=== PATIENT | female | born 1975 | race Caucasian/White ===

== ENCOUNTER 2016-04-24 20:35 | Observation (INO) | payer BC ==
--- NOTE | ~2016-04-24 | HP ---
History And Physical [place] [id number] [facility] [place]. [address] NAME: SIMON SHERIDAN : 73 STATUS : ADM Renea PAT#: [id number] AGE: 40 ADM/REG DATE : 04/24/16 MR#: [id number] REPORT SERV DATE: 04/25/16 DICTATED BY: MEL PRITCHARD DATE: 04/25/16 REPORT STATUS : Draft TRANSCRIBED BY: MODNils DATE: 04/25/16 DATE OF ADMISSION: 04/24/2016 CHIEF COMPLAINT: Chest pain. HISTORY OF PRESENT ILLNESS: This is a 40-year-old female with type 2 diabetes mellitus, who reports a two-week history of chest pain. She states the pain has been constant, described as "tightness," and does not have an exertional component. She states "I just haven't been feeling right," and coworkers have noticed her face flushing over the last couple of weeks, and the patient also mentions some chills recently. Yesterday while she was cleaning some cabinets, the chest pain worsened to 8/10 in severity in the mid sternum with some radiation to the right side of her chest as well as the right side of her back and up to her jaw and is accompanied with feeling of "couldn't get my breath." She took two aspirin and then 30 minutes later, had a "burning sensation" down the right arm and she thought it ta to come to the emergency department for further evaluation. She was given a GI cocktail as well as a fluid bolus with no specific relief, and then she states that the sublingual nitroglycerin as well as paste seemed to ease the chest pain. Nothing has ever fully relieved the pain. The patient denies personal history for DC, CVA, PE, or DVT. She states she has been under a lot of stress lately at work as well as with some family situation and moving. She states these recent chills and sweats, but states she has not checked her temperature for fever. Denies cough or any other significant illness recently. Her blood glucose is elevated at 333 on her admission blood work, and she does stay compliant with her metformin, but not as well with her dietary restrictions. Reportedly, her last hemoglobin A1c a couple of months ago was 9, and there have been no recent adjustments to her diabetes regimen. The patient denies any recent orthopnea, PND, or lower extremity edema. PAST MEDICAL HISTORY: 1. Anxiety and depression. 2. GERD. 3. Hypothyroidism. 4. Type 2 diabetes mellitus. 5. Obesity. 6. Crohn's disease, under good control. Has seen Dr. Richards in the past. 7. Renal calculi, 11/2015 with cystoscopy and stent. PAST SURGICAL HISTORY: 1. Right ganglionic cyst removal. 2. Hysterectomy with BSO. 3. . 4. Cholecystectomy. HOME MEDICATIONS: Celexa 40 daily, Prevacid 15 daily, Synthroid 25 mcg daily, Glucophage 500 b.i.d. ALLERGIES: NO KNOWN DRUG ALLERGIES. History And Physical [address] [address] NAME: SIMON SHERIDAN : 73 STATUS : ADM Renea PAT#: [id number] AGE: 40 ADM/REG DATE : 04/24/16 MR#: [id number] REPORT SERV DATE: 04/25/16 DICTATED BY: MEL PRITCHARD DATE: 04/25/16 REPORT STATUS : Draft TRANSCRIBED BY: DIETER DATE: 04/25/16 SOCIAL HISTORY: The patient is single and lives with her boyfriend. She works as a CPA. She lives in [place]. One daughter, who is 17 years old. Denies history of smoking. She has an occasional glass of wine. Denies illicit drug use. FAMILY HISTORY: Father with coronary artery disease, but alive at age 69. No premature cardiovascular among her first-degree relatives. REVIEW OF SYSTEMS: Negative, except as indicated above. PHYSICAL EXAMINATION: VITAL SIGNS: Blood pressure 106/56, heart rate 62, temperature 97.8, pulse oximetry 95% on room air. BMI 34.6. GENERAL: Well developed, well nourished, in no acute distress. HEENT: Anicteric. Normal EOM. Head, normocephalic. PERRLA, no xanthelasma. NECK: Supple. No JVD. Carotids normal without bruits. LUNGS: Clear to auscultation bilaterally anterior and posterior. Respirations even and unlabored. CARDIOVASCULAR: S1 and S2. Regular rate and rhythm. No murmurs, rubs, or gallops appreciated. PMI nondisplaced. There is some tenderness to palpation over the right sternum. ABDOMEN: Normal bowel sounds. Soft and nontender to palpation. No masses or organomegaly. EXTREMITIES: No peripheral edema. DP/PT and radial pulses palpable bilaterally. No clubbing or cyanosis. SKIN: Warm and dry. Normal turgor. No pallor or cyanosis. MUSCULOSKELETAL: Moving all extremities x4. Normal muscle strength. NEURO/PSYCH: Alert and oriented with appropriate affect. LABORATORY DATA: White blood count 12.5, hemoglobin 14.1, hematocrit 40.3. D-dimer less than 0.27. Sodium 138, potassium 3.8, BUN 13, creatinine 0.8, glucose 333. Troponin less than 0.02 x2. Normal liver enzymes and lipase. Chest x-ray shows no acute cardiopulmonary processes. EKGs interpreted by myself indicate normal sinus rhythm with poor R-wave progression through the anteroseptal leads and possible inferior Q-waves. No ischemic changes. ASSESSMENT AND PLAN: 1. Midsternal chest pain in this 40-year-old female with cardiovascular risk factors of uncontrolled diabetes. She has been observed overnight in the chest pain observation unit and is negative for acute coronary syndrome. Recommend proceeding with a stress echocardiogram in the morning to further differentiate any cardiac etiology. If this is low risk, we will plan to discharge her home to follow up with her primary care physician. Her white blood count is mildly elevated, but the patient shows no signs of acute illness at this time. She has been afebrile. I wonder if some of her symptoms may be viral or musculoskeletal. 2. Uncontrolled diabetes mellitus. We have instituted a level 1 sliding scale insulin protocol while holding metformin while she is here. I will check a hemoglobin A1c and History And Physical [address] [address] NAME: SIMON SHERIDAN : 73 STATUS : ADM Renea PAT#: [id number] AGE: 40 ADM/REG DATE : 04/24/16 MR#: [id number] REPORT SERV DATE: 04/25/16 DICTATED BY: MEL PRITCHARD DATE: 04/25/16 REPORT STATUS : Draft TRANSCRIBED BY: DIETER DATE: 04/25/16 also ask the lithographic proofer to discuss with the patient dietary management of her diabetes. The patient will need followup with her primary care physician for intensification of her diabetes medications. 3. Hypothyroidism. The patient stays compliant with her Synthroid. We will check a TSH. 4. Gastroesophageal reflux disease and history of Crohn's. The patient states no recent diarrhea or bloody stools. No recent nausea or vomiting. We will continue PPI. 5. The patient does report history of hypertriglyceridemia. I have spoken with the patient about increasing exercise, losing weight and low-fat, low-cholesterol diet. This will likely also respond to her increased diabetes management. DBT/MODL Mel Pritchard NP / [phone] CC: Fariba Whitley, MSN, [employer]- Lopez Woods M.D.
[2016-04-24 19:24] LABS: BASOPHILS 0.2 %; BASOPHILS ABSOLUTE 0.03 10/3/uL (0.0-0.16); EOSINOPHILS 1.1 %; EOSINOPHILS ABSOLUTE 0.14 10/3/uL (0.0-0.53); ER CBC TAT 0 Hrs 09 Mins; HEMATOCRIT 40.3 % (36.0-48.0); HEMOGLOBIN 14.1 g/dL (12.0-16.0); IMMATURE GRANULOCYTES 0.2 %; IMMATURE GRANULOCYTES ABSOLUTE 0.02 10/3/uL (0.0-0.11); LYMPHOCYTES 34.9 %; LYMPHOCYTES ABSOLUTE 4.36 10/3/uL (0.67-4.30); MANUAL DIFF NO %; MEAN CORPUSCULAR HEMOGLOB 27.2 pg (26.0-34.0); MEAN CORPUSCULAR VOLUME 77.6 fL (80-100); MEAN PLATELET VOLUME 10.7 fL (9.2-13.0); MONOCYTES 4.1 %; MONOCYTES ABSOLUTE 0.51 10/3/uL (0.21-1.20); NEUTROPHILS 59.5 %; NEUTROPHILS ABSOLUTE 7.44 10/3/uL (2.02-8.40); PLATELET COUNT 241 10/3/uL (150-400); RBC DISTRIBUTION WIDTH 14.6 % (12.0-16.0); RED CELL COUNT 5.19 10/6/uL (4.0-5.6); WHITE BLOOD CELLS 12.5 10/3/uL (4.5-10.5)
[2016-04-24 19:26] LABS: INTERNATIONAL NORMAL RATI 1.1 UNITS (-); PARTIAL THROMBO TIME 27.7 SEC (22.5-37.2); PROTIME (NOT ORD) 13.6 SEC (12.0-14.5)
[2016-04-24 19:38] LABS: BUN (BLOOD UREA NITROGEN) 13 MG/DL (6-23); CALCIUM, SERUM 9.1 MG/DL (8.5-10.4); CHEST PAIN PROFILE TAT 0 Hrs 23 Mins; CHLORIDE, SERUM 99 MMOL/L (96-112); CO2 (CARBON DIOXIDE) 26 MMOL/L (24-34); CREATININE 0.83 MG/DL (0.55-1.02); GFR AFRICAN AMERICAN 102 ML/MIN (>=60); GFR NON AFRICAN AMERICAN 88 ML/MIN (>=60); GLUCOSE, SERUM 333 MG/DL (60-99); POTASSIUM, SERUM 3.8 MMOL/L (3.5-5.3); SODIUM, SERUM 138 MMOL/L (135-148); TROPONIN I <0.02 NG/ML (<0.05)
[2016-04-24 20:23] LABS: ALBUMIN 3.9 G/DL (3.5-5.0); DIRECT BILIRUBIN 0.1 MG/DL (0.0-0.4); INDIRECT BILIRUBIN(NOT ORDER) 0.5 MG/DL (0.1-0.9); SGOT(AST) 16 U/L (5-40); SGPT(ALT) 39 U/L (5-65); TOTAL BILIRUBIN 0.6 MG/DL (0-1.2); TOTAL PROTEIN 8.1 G/DL (6.0-8.5)
[2016-04-24 20:24] LABS: ALKALINE PHOSPHATASE 129 U/L (45-117)
[~2016-04-24 20:35] MED LIST: ARMOUR THYRO60 MG PO; GLUCPH PO; PROTONIX PO; [UNRECOGNIZED DRUG - OTHER] SC
[2016-04-24 20:37] LABS: D-DIMER QUANTITATIVE < 0.27 ug/mLFEU (< 0.50)
[2016-04-24] MEDS ORDERED: CELEXA40 MG PO (22:11)
[2016-04-24] MEDS ORDERED: SYN.025B PO (22:11)
[2016-04-24] MEDS ORDERED: GLUCPH PO (22:11)
[2016-04-24] MEDS ORDERED: PREV15 PO (22:12)
[2016-04-25 01:24] LABS: TROPONIN I <0.02 NG/ML (<0.05)
[2016-04-25 13:46] LABS: T4 (THYROXINE) TOTAL 6.5 MCG/DL (4.5-12.0)
== END 2016-04-26 17:49 | disposition home or self-care (01) ==
LOC: ER 20:35 → CDU1 22:30 → CDU2 22:35
PROVIDERS: Clinical Nurse Specialist; Emergency Medicine
DX: R07.2 Precordial pain (principal); E11.9 Type 2 diabetes mellitus without complications; E03.9 Hypothyroidism, unspecified; K21.9 Gastro-esophageal reflux disease without esophagitis; E78.1 Pure hyperglyceridemia; F41.9 Anxiety disorder, unspecified; F32.9 Major depressive disorder, single episode, unspecified; E66.9 Obesity, unspecified; Z87.442 Personal history of urinary calculi; Z90.710 Acquired absence of both cervix and uterus; Z90.49 Acquired absence of other specified parts of digestive tract; Z98.890 Other specified postprocedural states; Z79.899 Other long term (current) drug therapy; Z82.49 Family history of ischemic heart disease and other diseases of the circulatory system
CPT/HCPCS: 71010; 80048; 80076; 82962; 83036; 83690; 83735; 84436; 84443; 84484; 85025; 85379; 85610; 85730; 93005; 93017; 93350; 96374; 96375; 99285; A9270-GY; G0378

== ENCOUNTER 2016-07-29 13:17 | Emergency (ER) | payer BC ==
[~2016-07-29 13:17] MED LIST changes: +CELEXA40 MG PO; +PREV15 PO; +SYN.025B PO
[2016-07-29 13:34] LABS: BASOPHILS 0.3 %; BASOPHILS ABSOLUTE 0.03 10/3/uL (0.0-0.16); EOSINOPHILS ABSOLUTE 0.44 10/3/uL (0.0-0.53); HEMATOCRIT 37.6 % (36.0-48.0); HEMOGLOBIN 13.2 g/dL (12.0-16.0); IMMATURE GRANULOCYTES 0.3 %; IMMATURE GRANULOCYTES ABSOLUTE 0.03 10/3/uL (0.0-0.11); LYMPHOCYTES ABSOLUTE 2.66 10/3/uL (0.67-4.30); MEAN CORPUS HGB CONC 35.1 g/dL (32.0-36.0); MEAN CORPUSCULAR HEMOGLOB 27.4 pg (26.0-34.0); MEAN PLATELET VOLUME 10.4 fL (9.2-13.0); MONOCYTES 4.6 %; MONOCYTES ABSOLUTE 0.41 10/3/uL (0.21-1.20); NEUTROPHILS 59.8 %; NEUTROPHILS ABSOLUTE 5.31 10/3/uL (2.02-8.40); PLATELET COUNT 217 10/3/uL (150-400); RBC DISTRIBUTION WIDTH 13.9 % (12.0-16.0); RED CELL COUNT 4.82 10/6/uL (4.0-5.6); WHITE BLOOD CELLS 8.9 10/3/uL (4.5-10.5)
[2016-07-29 13:37] LABS: MANUAL DIFF NO %
[2016-07-29 13:41] LABS: INTERNATIONAL NORMAL RATI 1.1 UNITS (-); PROTIME (NOT ORD) 14.3 SEC (12.0-14.5)
[2016-07-29 13:42] LABS: PARTIAL THROMBO TIME 27.4 SEC (22.5-37.2)
[2016-07-29 13:51] LABS: BUN (BLOOD UREA NITROGEN) 10 MG/DL (6-23); CALCIUM, SERUM 8.7 MG/DL (8.5-10.4); CHEST PAIN PROFILE TAT 0 Hrs 21 Mins; CHLORIDE, SERUM 106 MMOL/L (96-112); CO2 (CARBON DIOXIDE) 27 MMOL/L (24-34); CREATININE 0.78 MG/DL (0.55-1.02); GFR AFRICAN AMERICAN 109 ML/MIN (>=60); GFR NON AFRICAN AMERICAN 94 ML/MIN (>=60); POTASSIUM, SERUM 3.9 MMOL/L (3.5-5.3); SODIUM, SERUM 138 MMOL/L (135-148); TROPONIN I <0.02 NG/ML (<0.05)
[2016-07-29 13:52] LABS: GLUCOSE, SERUM 213 MG/DL (60-99)
[2016-07-29 16:01] LABS: D-DIMER QUANTITATIVE < 0.27 ug/mLFEU (< 0.50)
== END 2016-07-29 18:01 | disposition home or self-care (01) ==
LOC: ER 13:17
PROVIDERS: Emergency Medicine
DX: R07.89 Other chest pain (principal); R19.7 Diarrhea, unspecified; K21.9 Gastro-esophageal reflux disease without esophagitis; F41.9 Anxiety disorder, unspecified; E11.9 Type 2 diabetes mellitus without complications; Z90.710 Acquired absence of both cervix and uterus; F32.9 Major depressive disorder, single episode, unspecified; Z79.899 Other long term (current) drug therapy; Z79.84 Long term (current) use of oral hypoglycemic drugs
CPT/HCPCS: 71020; 80048; 83690; 83735; 84484; 85025; 85379; 85610; 85730; 93005; 99285; A9270-GY